=== PATIENT | female | born 1990 | race Caucasian/White ===

== ENCOUNTER → 2017-04-23 14:30 | Outpatient (POV) | payer BC, SELFPAY | PROVIDERS: Visit Provider Physician Assistant | DX: Z00.00 Encounter for general adult medical examination without abnormal findings (principal) ==

== ENCOUNTER 2017-05-17 07:16 | Emergency (ER) | payer BC, SELFPAY ==
[2017-05-17 07:24] VITALS: BP 151/88; PULSE 82; RESP 18; TEMP 36.6; O2SAT 99; BMI 42.0
--- NOTE | 2017-05-17 07:32 | CT_ITS ---
CT abdomen pelvis wo con CLINICAL INDICATION: Right upper quadrant pain ITS.REASON: ruq pain ORDERING PHYSICIAN: Niko Price MD PATIENT AGE: 26 years COMPARISON: None TECHNIQUE: Axial images obtained with sagittal and coronal reformats. PROCEDURE: Oral Contrast: None IV Contrast: None . FINDINGS: No acute finding in the lung bases. No focal liver lesion. Gallstones are present stone noted in the region of the neck of the gallbladder. No obvious biliary dilatation. Spleen is enlarged at 16 cm. The adrenal glands and pancreas are unremarkable. No obstructing renal or ureteral calculi. No renal mass. There are small lymph nodes in the retroperitoneum. Unremarkable appendix. No intestinal obstruction or free air. No evidence of diverticulitis. No pelvic mass or focal inflammatory change there is a left ovarian cyst 3.7 cm. No acute bony anomalies. IMPRESSION: Cholelithiasis. A 16 mm stone is present near the neck of the gallbladder. Splenomegaly Possible left ovarian cyst
[2017-05-17 08:11] LABS: Urine Pregnancy, HCG Qual. Negative (Negative)
[2017-05-17 08:26] LABS: Basophils # 0.1 K/mm3 (0-0.2); Basophils % 0.6 % (0.1-2.0); Eosinophils # 0.2 K/mm3 (0.0-0.4); Eosinophils % 1.8 % (0.1-12.0); Hematocrit 40.4 % (37.0-47.0); Hemoglobin 13.3 g/dL (12.2-16.2); Lymphocytes # 2.1 K/mm3 (0.7-4.5); Lymphocytes % 25.8 K/mm3 (10-50); Mean Corpuscular HGB Conc 32.9 g/dL (31.8-35.4); Mean Corpuscular Hemoglobin 29.7 pg (27.0-31.2); Mean Corpuscular Volume 90.3 fl (81-99); Mean Platelet Volume 7.4 fl (7.4-10.4); Monocytes # 0.4 K/mm3 (0.1-1.0); Monocytes % 4.9 % (1.7-9.3); Neutrophils # 5.5 K/mm3 (1.8-7.8); Neutrophils % 66.9 % (37.0-80.0); Platelet Count 211 K/mm3 (142-424); Red Blood Count 4.48 M/mm3 (4.20-5.40); Red Cell Distribution Width 12.2 % (11.5-17.5); White Blood Count 8.2 K/mm3 (4.8-10.8)
--- NOTE | 2017-05-17 08:35 | HMH.EDABDPAI ---
ED Disposition Clinical Impression: RUQ abdominal pain Cholelithiasis Qualifiers: Cholelithiasis location: gallbladder Cholecystitis presence: without cholecystitis Biliary obstruction: without biliary obstruction Qualified Code(s): K80.20 - Calculus of gallbladder without cholecystitis without obstruction Disposition: Home, Self-Care Condition on Discharge: Good Instructions: DI for Acute Abdomen Additional Instructions: Please avoid any fatty/greasy meals, eat a bland diet, follow-up with the general surgeon (dr Petit) within the next 3-5 days. Referrals: Torito Addison MD [Primary Care Provider] - Tanner Petit MD [Staff Physician] - Time of Disposition: 09:38 - Critical Care Critical Care Time: No Attestation: On 05/17/17, the high probability of a clinically significant, sudden or life threatening deterioration of the following system(s) required my full and direct attention, intervention and personal management. The time I documented below is in addition to time spent performing reported procedures but includes the following listed in this critical care notation. Medical Decision Making - Medical Records Medical records reviewed: Yes: I reviewed the patient's medical records. Vital Signs: 05/17/17 07:24 05/17/17 10:51 Temperature 97.8 F 98.2 F Temperature Source Oral Oral Pulse Rate 67 Pulse Rate [Right Brachial] 82 Respiratory Rate 18 16 Blood Pressure 138/74 Blood Pressure [Right Arm] 151/88 Blood Pressure Mean [Right Arm] 109 Blood Pressure Source Automatic Cuff Blood Pressure Source [Right Arm] Automatic Cuff Blood Pressure Position Sitting Blood Pressure Position [Right Arm] Sitting 02 Sat by Pulse Oximetry 99 Oxygen Delivery Method Room Air Room Air - Lab Data Lab results reviewed: Yes: I reviewed the patient's lab results. Lab Results 05/17/17 07:50: WBC 8.2, RBC 4.48, Hgb 13.3, Hct 40.4, MCV 90.3, MCH 29.7, MCHC 32.9, RDW 12.2, Plt Count 211, MPV 7.4, Neut % (Auto) 66.9, Lymph % (Auto) 25.8, Smyth % (Auto) 4.9, Eos % (Auto) 1.8, Baso % (Auto) 0.6, Neut # (Auto) 5.5, Lymph # (Auto) 2.1, Smyth # (Auto) 0.4, Eos # (Auto) 0.2, Baso # (Auto) 0.1 05/17/17 07:50: Sodium 142, Potassium 4.4, Chloride 106, Carbon Dioxide 29, Anion Gap 11.4, BUN 12, Creatinine 0.72, Estimated Creat Clear 124, Estimated GFR 98, Est GFR ( Amer) 118, Glucose 111 H, Calcium 8.7, Total Bilirubin 0.2, AST 15, ALT 29, Alkaline Phosphatase 55, Total Protein 6.8, Albumin 3.6, Globulin 3.2, Albumin/Globulin Ratio 1.1, Amylase 31, Lipase 121 05/17/17 08:00: Urine HCG, Qual Negative 05/17/17 08:00: Urine Color Yellow, Urine Appearance Clear, Urine pH 6.0, Ur Specific [place] 1.020, Urine Protein Negative, Urine Glucose (UA) Negative, Urine Ketones Negative, Urine Blood Negative, Urine Nitrate Negative, Urine Bilirubin Negative, Urine Urobilinogen 0.2, Ur Leukocyte Esterase Negative, Urine WBC 3-5, Ur Squamous Epith Cells 10-20, Urine Bacteria 1+, Urine Mucus Trace Result diagrams: 05/17/17 07:50 05/17/17 07:50 Orders (Tests/Meds): ED MEDICATIONS Discontinued Medications Generic Name Dose Route Start Last Admin Trade Name Freq PRN Reason Stop Dose Admin Sodium Chloride 1,000 mls @ 999 mls/hr 05/17/17 08:30 05/17/17 08:37 Sod Chlor 0.9% 1000ml Bag IV 05/17/17 09:30 Not Given .Q1H1M FLOR Lactated Ringer's 1,000 mls @ 999 mls/hr 05/17/17 08:45 05/17/17 08:39 Lactated Ringer's 1000 Ml Bag IV 05/17/17 09:45 999 mls/hr .Q1H1M FLOR Administration Ketorolac Tromethamine 30 mg 05/17/17 08:26 05/17/17 08:35 Toradol 30mg/Ml Vial IV 05/17/17 08:27 30 mg ONCE ONE Administration Ondansetron HCl 4 mg 05/17/17 08:26 05/17/17 08:35 Zofran 4mg/2ml Vial IV 05/17/17 08:27 4 mg ONCE ONE Administration - CT Data CT Scan: Abdomen, Pelvis Time Received: 09:[address] Reviewed: Yes: I have reviewed the patient's CT results, I have viewed the radiologist's interpretatio
[2017-05-17 08:44] LABS: Alanine Aminotransferase 29 U/L (12-78); Albumin Level 3.6 gm/dL (3.4-5.0); Albumin/Globulin Ratio 1.1 (1.1-1.8); Alkaline Phosphatase 55 U/L (46-116); Amylase 31 U/L (25-125); Anion Gap 11.4 mEq/L (5-15); Aspartate Amino Transferase 15 U/L (15-37); Bilirubin,Total 0.2 mg/dL (0.2-1.0); Blood Urea Nitrogen 12 mg/dL (7-18); Calcium 8.7 mg/dL (8.5-10.1); Carbon Dioxide 29 mmol/L (21.0-32.0); Chloride 106 mmol/L (98-107); Creatinine Clearance Estimated 124 mL/min (0-300); Creatinine,Serum 0.72 mg/dL (0.55-1.02); Estimated Glomerular Filt Rate 98 ml/min (>60); GFR (African American) 118 ML/MIN (>60); Globulin 3.2 gm/dl (1.3-3.2); Glucose 111 mg/dL (74-106); Lipase 121 u/L (73-393); Potassium 4.4 mmoL/L (3.5-5.1); Sodium 142 mmol/L (136-145); Total Protein,Serum 6.8 gm/dL (6.4-8.2)
--- NOTE | 2017-05-17 08:44 | ED_ITS ---
ED Disposition Clinical Impression: RUQ abdominal pain Cholelithiasis Qualifiers: Cholelithiasis location: gallbladder Cholecystitis presence: without cholecystitis Biliary obstruction: without biliary obstruction Qualified Code(s) : K80.20 - Calculus of gallbladder without cholecystitis without obstruction Disposition: Home, Self-Care Condition on Discharge: Good Instructions: DI for Acute Abdomen Additional Instructions: Please avoid any fatty/greasy meals, eat a bland diet, follow-up with the general surgeon (dr Petit) within the next 3-5 days. Referrals: Torito Addison MD [Primary Care Provider] - Tanner Petit MD [Staff Physician] - Time of Disposition: 09:38 - Critical Care Critical Care Time: No Attestation: On 05/17/17, the high probability of a clinically significant, sudden or life threatening deterioration of the following system(s) required my full and direct attention, intervention and personal management. The time I documented below is in addition to time spent performing reported procedures but includes the following listed in this critical care notation. Medical Decision Making - Medical Records Medical records reviewed: Yes: I reviewed the patient's medical records. Vital Signs: 05/17/17 07:24 05/17/17 10:51 Temperature 97.8 F 98.2 F Temperature Source Oral Oral Pulse Rate 67 Pulse Rate [Right Brachial] 82 Respiratory Rate 18 16 Blood Pressure 138/74 Blood Pressure [Right Arm] 151/88 Blood Pressure Mean [Right Arm] 109 Blood Pressure Source Automatic Cuff Blood Pressure Source [Right Arm] Automatic Cuff Blood Pressure Position Sitting Blood Pressure Position [Right Arm] Sitting 02 Sat by Pulse Oximetry 99 Oxygen Delivery Method Room Air Room Air - Lab Data Lab results reviewed: Yes: I reviewed the patient's lab results. Lab Results 05/17/17 07:50: WBC 8.2, RBC 4.48, Hgb 13.3, Hct 40.4, MCV 90.3, MCH 29.7, MCHC 32.9, RDW 12.2, Plt Count 211, MPV 7.4, Neut % (Auto) 66.9, Lymph % (Auto) 25.8 , Ransom % (Auto) 4.9, Eos % (Auto) 1.8, Baso % (Auto) 0.6, Neut # (Auto) 5.5, Lymph # (Auto) 2.1, Ransom # (Auto) 0.4, Eos # (Auto) 0.2, Baso # (Auto) 0.1 05/17/17 07:50: Sodium 142, Potassium 4.4, Chloride 106, Carbon Dioxide 29, Anion Gap 11.4, BUN 12, Creatinine 0.72, Estimated Creat Clear 124, Estimated GFR 98, Est GFR ( Amer) 118, Glucose 111 H, Calcium 8.7, Total Bilirubin 0.2, AST 15, ALT 29, Alkaline Phosphatase 55, Total Protein 6.8, Albumin 3.6, Globulin 3.2, Albumin/Globulin Ratio 1.1, Amylase 31, Lipase 121 05/17/17 08:00: Urine HCG, Qual Negative 05/17/17 08:00: Urine Color Yellow, Urine Appearance Clear, Urine pH 6.0, Ur Specific [place] 1.020, Urine Protein Negative, Urine Glucose (UA) Negative, Urine Ketones Negative, Urine Blood Negative, Urine Nitrate Negative, Urine Bilirubin Negative, Urine Urobilinogen 0.2, Ur Leukocyte Esterase Negative, Urine WBC 3-5, Ur Squamous Epith Cells 10-20, Urine Bacteria 1+, Urine Mucus Trace Result diagrams: 05/17/17 07:50 05/17/17 07:50 Orders (Tests/Meds): ED MEDICATIONS Discontinued Medications Generic Name Dose Route Start Last Admin Trade Name Freq PRN Reason Stop Dose Admin Sodium Chloride 1,000 mls @ 999 mls/hr 05/17/17 08:30 05/17/17 08:37 Sod Chlor 0.9% 1000ml Bag IV 05/17/17 09:30 Not Given .Q1H1M FLOR Lactated Ringer's 1,000 mls @ 999 mls/hr 05/17/17 08
--- NOTE | 2017-05-17 08:52 | US_ITS ---
US gallbladder HISTORY: ITS.REASON: RUQ abdominal pain ORDERING PHYSICIAN: Niko Price MD PATIENT AGE: 26 years COMPARISON: None FINDINGS: PANCREAS: Unremarkable. No obvious mass or abnormal fluid collection. No ductal dilatation LIVER: No focal liver lesions demonstrated. Homogeneous echogenicity. No intrahepatic biliary ductal dilatation evident RIGHT KIDNEY: Unremarkable. Normal size and echogenicity. No hydronephrosis GALLBLADDER: Gallbladder is mildly distended. There are 2 stones in the gallbladder the largest measuring approximately 2 cm. One stone is near the neck of the gallbladder. No gallbladder wall thickening or pericholecystic fluid evident. The common bile duct is normal at 3 mm. IMPRESSION: Cholelithiasis with mildly distended gallbladder. One stone is near the neck of the gallbladder. No biliary dilatation or gallbladder wall thickening
[2017-05-17 08:55] LABS: Microscopic, Urine URINE MICROSCOPIC (MICROSCOPIC)
[2017-05-17 08:57] LABS: Appearance,Urine CLEAR (Clear); Bilirubin,Urine Negative (Negative); Blood, Urine Negative (Negative); Color,Urine YELLOW (Yellow); Glucose,Urine (UA) Negative (Negative); Ketones,Urine Negative (Negative); Leukocyte Esterase,Urine Negative (Negative); Nitrate,Urine Negative (Negative); Protein,Urine Negative (Negative); Urobilinogen,Urine 0.2 EU/dl (0.2)
[2017-05-17 09:06] LABS: Bacteria,Urine 1+ /lpf; Mucus,Urine Trace /lpf
[2017-05-17 10:51] VITALS: BP 138/74; PULSE 67; RESP 16; TEMP 36.8; O2SAT 98
== END 2017-05-17 10:53 | disposition home or self-care (01) ==
PROVIDERS: Emergency Medicine; Emergency Provider Emergency Medicine; PCP Internal Medicine Adolescent Medicine
DX: K80.20 Calculus of gallbladder without cholecystitis without obstruction (principal)
CPT/HCPCS: 74176; 76705; 80053; 81001; 81025; 82150; 83690; 85025; 93005; 93041; 96365; 96366; 96375; 99283; J2405

== ENCOUNTER 2017-06-08 08:52 | Day surgery (SDC) | payer BC, SELFPAY ==
[2017-06-06 13:06] VITALS: BMI 40.8
[2017-06-08] VITALS (9 sets, daily range): BP systolic 114–156; BP diastolic 52–74; PULSE 66–87; RESP 16–18; TEMP 36–36.5; O2SAT 95–97
[2017-06-08 09:19] LABS: Urine Pregnancy, HCG Qual. Negative (Negative)
--- NOTE | 2017-06-08 09:45 | HMH.ANESCL ---
[facility] Anesthesia Checklist - Patient Identification Patient Identification: Arm Band - Structural Data Admitted From: Home Planned Operative Procedure/s: lap david Consent for Planned Operative Procedure(s) Verified: Yes Verified Documents: Surgical Consent, History and Physical - NPO Status Verified Time NPO: 00:00 - Additional verifications Anesthesia Reactions: No - Airway Assessment C-Spine Mobility Assessed: Yes (mp2) TMJ Mobility Assessed: Yes Dentition: Good Dentition - Neurological Assessment Level of Consciousness: Awake, Alert - Anesthesia Plan Anesthesia Risk discussed: Yes Anesthesia Plan: Verified ASA Class: II Anesthesia Type: General [facility] Anesthesia HX I have reviewed the patient's past medical history: Yes Medical History: Denies:: Cancer, Diabetes Mellitus Type 1, Diabetes Mellitus Type 2, MRSA, Seizures Other Medical History: Reports: Sinus Problems. Denies: Blood Transfusion Reaction Laterality Cases: Bilateral: Tonsillectomy Amputation: No Fractures: No *Family Hx:: Hypertension, Diabetes
--- NOTE | 2017-06-08 11:14 | HMH.OPNOTE ---
Date of procedure: 06/08/17 Pre-op Diagnosis:: Chronic calculus cholecystitis Post-op Diagnosis:: Same Procedure performed:: Laparoscopic cholecystectomy Surgeon:: Tanner Petit MD [employer]:: Irma Flores [employer]:: Grant Chan Anesthesia: GETA Estimated blood loss (mL): 10 Operative findings:: Severe pericholecystic fat stranding and wall thickening Operative note:: After informed consent was obtained, the patient was taken to the operating room and placed in the supine position. General anesthesia was induced and the abdomen was prepped and draped in a sterile fashion. After infiltration with local anesthetic an infraumbilical incision was made. A Veress needle was placed in position. The abdomen was insufflated. A 5 mm optical trocar was placed in position. Under direct visualization, a 12 mm trocar was placed in the subxiphoid position and 2 additional 5 mm trocars were placed in the right upper quadrant. The gallbladder was elevated up and over the liver margin. The tissue around the cystic duct was carefully dissected. 3 clips were placed proximally and the duct was transected with harmonic aby. Harmonic aby were then utilized to dissect the gallbladder away from the liver margin with careful attention to the control of the cystic artery. The gallbladder was placed in a retrieval bag and removed through the subxiphoid trocar site. The right upper quadrant was thoroughly irrigated. No active bleeding or bile leak was noted. Fascia at the subxiphoid trocar site was reapproximated utilizing the NeoClose device. The remaining trocars were removed. All wounds were irrigated and skin was closed with 4-0 Monocryl in a subcuticular fashion. Steri-Strips were applied. The patient's anesthetic agents were reversed and extubation was completed prior to transfer to recovery in stable condition. Condition: stable Disposition: PACU Specimens:: Gallbladder and contents Complications:: No immediate
--- NOTE | 2017-06-08 11:31 | P.PN_ITS ---
[facility] Anesthesia Record Part II Discharge Time: 12:00 Destination: [facility] PACU nurse assessment reviewed?: Yes Patient Condition:: Good Anesthesia Complications:: None
--- NOTE | 2017-06-08 11:31 | P.PN_ITS ---
[facility] Anesthesia Record Part I Intake, IV Amount: 1,500 Estimated blood loss (mL): 15 Urine output (mL): 0 Blood Pressure: 123/63 SaO2: 95 Pulse Rate: 87 Respiratory Rate: 16 Temperature: 97.7 F Patient is:: Drowsy, Stable Stable to PACU at:: 11:30
--- NOTE | 2017-06-08 11:31 | HMH.ANESII ---
[facility] Anesthesia Record Part II Discharge Time: 12:00 Destination: [facility] PACU nurse assessment reviewed?: Yes Patient Condition:: Good Anesthesia Complications:: None
== END 2017-06-08 12:34 | disposition home or self-care (01) ==
PROVIDERS: PCP Internal Medicine Adolescent Medicine; Visit Provider Surgery
PROC: 0FT44ZZ Resection of Gallbladder, Percutaneous Endoscopic Approach (ICD-10-PCS; CPT 47562; principal; 2017-06-08 10:25)
DX: K80.10 Calculus of gallbladder with chronic cholecystitis without obstruction (principal)
CPT/HCPCS: 47562; 81025; 96374; J0131; J2405; J2710

== ENCOUNTER → 2018-07-09 12:52 | Outpatient (CLI) | payer BC, SELFPAY ==
[2018-07-09 13:34] LABS: Basophils % 0.5 % (0.1-2.0); Eosinophils # 0.1 K/mm3 (0.0-0.4); Eosinophils % 1.7 % (0.1-12.0); Hematocrit 39.4 % (37.0-47.0); Hemoglobin 13.4 g/dL (12.2-16.2); Lymphocytes # 2.1 K/mm3 (0.7-4.5); Lymphocytes % 34.9 % (10-50); Mean Corpuscular Volume 91.2 fl (81-99); Mean Platelet Volume 7.7 fl (7.4-10.4); Monocytes # 0.2 K/mm3 (0.1-1.0); Monocytes % 3.6 % (1.7-9.3); Neutrophils # 3.5 K/mm3 (1.8-7.8); Neutrophils % 59.3 % (37.0-80.0); Platelet Count 224 K/mm3 (142-424); Red Blood Count 4.32 M/mm3 (4.20-5.40); Red Cell Distribution Width 12.5 % (11.5-17.5); White Blood Count 5.9 K/mm3 (4.8-10.8)
[2018-07-09 14:14] LABS: Hemoglobin A1C 5.4 % (0.0-7.0)
--- NOTE | 2018-07-09 14:22 | PC.NURSE ---
1330- Received call from lab requesting to check pt's bp. Upon arrival pt appeared pale, eating crackers and drinking orange juice. BP 113/38. Lab staff state pt became pale , lightheaded aftew having blood drawn at 13:15. Call placeed to Dr Addison. 13:45- Pt's BP 108/57, FSBS acquired (110). Return call from Dr Addison requesting pt be taken to ER for further evaluation. Pt transported to ED via wheelchair accompanied per hospital staff.
[2018-07-09 16:13] LABS: Alanine Aminotransferase 29 U/L (12-78); Albumin Level 3.6 gm/dL (3.4-5.0); Albumin/Globulin Ratio 1.1 (1.1-1.8); Alkaline Phosphatase 41 U/L (46-116); Anion Gap 18.3 mEq/L (5-15); Aspartate Amino Transferase 15 U/L (15-37); Bilirubin,Total 0.3 mg/dL (0.2-1.0); Blood Urea Nitrogen 13 mg/dL (7-18); Calcium 8.7 mg/dL (8.5-10.1); Carbon Dioxide 22 mmol/L (21.0-32.0); Chloride 106 mmol/L (98-107); Chol/HDL Ratio 4.6 (1-3.5); Cholesterol 179 mg/dL (140-200); Estimated Glomerular Filt Rate 86 ml/min (>60); Ferritin 27 ng/mL (8-388); GFR (African American) 104 ML/MIN (>60); Globulin 3.3 gm/dl (1.3-3.2); Glucose 87 mg/dL (74-106); HDL Cholesterol 39 mg/dL (29-89); LDL Cholesterol 112 mg/dL (0-130); Potassium 4.3 mmoL/L (3.5-5.1); Sodium 142 mmol/L (136-145); Thyroid Stimulating Hormone 1.78 uIU/ml (0.358-3.740); Total Protein,Serum 6.9 gm/dL (6.4-8.2); Triglycerides 140 mg/dL (30-200); VLDL Cholesterol 28 mg/dL (0-40)
[2018-07-11 15:04] LABS: Vitamin D 25 Hydroxy 30.8 ng/mL (30.0-100.0)
== END ==
PROVIDERS: Visit Provider Nurse Practitioner Family
DX: E66.01 Morbid (severe) obesity due to excess calories (principal); E55.9 Vitamin D deficiency, unspecified; R25.2 Cramp and spasm; F32.1 Major depressive disorder, single episode, moderate
CPT/HCPCS: 36415; 80053; 80061; 82652; 82728; 83036; 83735; 84443; 85025

== ENCOUNTER → 2018-08-21 14:09 | Outpatient (CLI) | payer BC, SELFPAY ==
[2018-08-21 14:13] LABS: Adenovirus F 40/41, stool Not Detected (NotDetected); Astrovirus Not Detected (NotDetected); Clostridium Difficile A/B, PCR Not Detected (NotDetected); Cryptosporidium Not Detected (NotDetected); Cyclospora Cayetanesis Not Detected (NotDetected); Entamoeba histolytica Not Detected (NotDetected); Enteroaggregative E coli Not Detected (NotDetected); Enteropathogenic E coli Not Detected (NotDetected); Enterotoxigenic E coli Not Detected (NotDetected); Giardia lamblia Not Detected (NotDetected); Norovirus Not Detected (NotDetected); Plesimonas Shigalloides, PCR Not Detected (NotDetected); Rotavirus A Not Detected (NotDetected); Salmonella, PCR Not Detected (NotDetected); Sapovirus Not Detected (NotDetected); Shiga-like toxin E coli Not Detected (NotDetected); Shigella Enterovasive E coli Not Detected (NotDetected); Vibrio Cholerae Not Detected (NotDetected); Vibrio, PCR Not Detected (NotDetected); Yersinia Entercolitica, PCR Not Detected (NotDetected)
[2018-08-21 20:27] LABS: Campylobacter Detected (NotDetected)
== END ==
LOC: LAB 14:10 → LAB.DROPOF 14:10
PROVIDERS: Visit Provider Internal Medicine Adolescent Medicine
DX: R19.7 Diarrhea, unspecified (principal); A04.5 Campylobacter enteritis
CPT/HCPCS: 87507

== ENCOUNTER 2019-08-12 18:37 | Emergency (ER) | payer BC, SELFPAY ==
[2019-08-12 18:38] VITALS: BP 142/89; PULSE 95; RESP 20; TEMP 36.8; O2SAT 100; BMI 42.8
--- NOTE | 2019-08-12 18:55 | XR_ITS ---
PROCEDURE: XR FOOT LT MIN 3V CLINICAL INDICATION: pain Heel pain, entire foot pain COMPARISON: No exams were available for comparison FINDINGS: No fracture or dislocation. No lytic or blastic change. There is normal mineralization. The joint spaces are well-preserved. No significant degenerative/arthritic changes. No erosive changes evident. Other findings:There is a small calcaneal spur. Os trigonum is present IMPRESSION: No acute findings. Dictated by: Madhav Weinstein MD 08/12/2019 19:50 Electronically signed by Madhav Weinstein MD in [place] 08/12/2019 19:50
--- NOTE | 2019-08-12 19:10 | HMH.EDUTC ---
[facility] Disposition Clinical Impression: Left foot pain, Foot tendinitis Achilles tendinitis Qualifiers: Laterality: left Qualified Code(s): M76.62 - Achilles tendinitis, left leg Disposition: Home, Self-Care Condition on Discharge: Good Instructions: DI for Achilles Tendinopathy, DI for Foot Pain Additional Instructions: Rest the extremity, Elevate the extremity as tolerated while you are resting. Continue to take your meloxicam for pain. Follow up with Dr. Fierro. I put in a referral but you need to call her office and schedule an appointment. Follow up with your regular doctor. GO TO THE ER FOR ANY WORSENING SYMPTOMS Referrals: Torito Addison MD [Primary Care Provider] - Nedra Fierro DPM [Staff Physician] - Forms: Work/School Release Time of Disposition: 19:16 Medical Decision Making - Medical Records Medical records reviewed: No: I reviewed the patient's medical records. - [place]pe Inquiry Pt receiving controlled substance: No Vital Signs: 08/12/19 18:38 08/12/19 19:21 Temperature 98.3 F 98.3 F Temperature Source Oral Oral Pulse Rate 95 H Pulse Rate [Radial] 95 H Respiratory Rate 20 20 Blood Pressure 142/84 H Blood Pressure [Right Arm] 142/89 H Blood Pressure Mean [Right Arm] 106 Blood Pressure Source Automatic Cuff Blood Pressure Source [Right Arm] Automatic Cuff Blood Pressure Position Sitting Blood Pressure Position [Right Arm] Sitting 02 Sat by Pulse Oximetry 100 Oxygen Delivery Method Room Air Room Air - Radiology Data #1 Image(s): Foot/Toes Image Reviewed: Yes I reviewed the patient's radiology image, Yes I have reviewed radiologist's interpretation Preliminary Findings: No Fracture Seen PROCEDURE: XR FOOT LT MIN 3V CLINICAL INDICATION: pain Heel pain, entire foot pain COMPARISON: No exams were available for comparison FINDINGS: No fracture or dislocation. No lytic or blastic change. There is normal mineralization. The joint spaces are well-preserved. No significant degenerative/arthritic changes. No erosive changes evident. Other findings:There is a small calcaneal spur. Os trigonum is present IMPRESSION: No acute findings. Dictated by: Madhav Weinstein MD 08/12/2019 19:50 Electronically signed by Madhav Weinstein MD in [place] 08/12/2019 19:50 [facility] HPI - General Stated complaint: Pain Left Foot Time Seen by Provider: 08/12/19 19:14 Mode of Arrival: Ambulatory Source of Information: Patient Limitations: No Limitations Description of Symptoms (Recalled from Triage Doc. by RN): Pain in left foot for a few days HEENT Symptoms (Recalled from RN notes): No Resp Symptoms (Recalled from RN notes): No Skin Symptoms (Recalled from RN notes): No MS Symptoms (Recalled from RN notes): Yes Functional Status (Recalled from RN notes): wnl - History of Present Illness Provider Complaint: She c/o left foot pain that began around 1 week ago. She denies any known injury. 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 After she has worked her foot hurts worse. She denies any swelling or history of gout or other joint pain. - Related Data Home Medications Medication Instructions Recorded Confirmed Cetirizine HCl [Zyrtec] 10 mg PO DAILY 06/06/17 06/23/19 Vit D3/Folic Acid/B2/B6/B12 1 each PO DAILY 06/06/17 06/23/19 [Folgard Tablet] buPROPion HCL [Wellbutrin Xl] 150 mg PO DAILY 01/22/19 06/23/19 Allergies Allergy/AdvReac Type Severity Reaction Status Date / Time No Known Allergies Allergy Verified 06/26/17 10:39 - Worker's Comp Is this a Worker's Comp case?: No [facility] History - Hepatitis A Screen Drug use history?: No High risk sexual behaviors?: No History of sexually transmitted infection?: No Currently employed?: No Childcare worker?: No Do you have indoor plumbing?: Yes Do you have electricity?: Yes Attestation statement:: This patient has been screened for Hepatitis A risk factors. I have reviewed the patient's past medical
[2019-08-12 19:21] VITALS: BP 142/84; PULSE 95; RESP 20; TEMP 36.8; O2SAT 100
== END 2019-08-12 19:23 | disposition home or self-care (01) ==
PROVIDERS: Emergency Provider Nurse Practitioner Family; PCP Internal Medicine Adolescent Medicine
DX: M76.62 Achilles tendinitis, left leg (principal); Z90.09 Acquired absence of other part of head and neck
CPT/HCPCS: 73630; 99201

== ENCOUNTER → 2019-10-03 13:13 | Outpatient (CLI) | payer BC, SELFPAY ==
[2019-10-03 13:26] LABS: Adenovirus F 40/41, stool Not Detected (NotDetected); Astrovirus Not Detected (NotDetected); Campylobacter Not Detected (NotDetected); Clostridium Difficile A/B, PCR Not Detected (NotDetected); Cryptosporidium Not Detected (NotDetected); Cyclospora Cayetanesis Not Detected (NotDetected); Entamoeba histolytica Not Detected (NotDetected); Enteroaggregative E coli Not Detected (NotDetected); Enterotoxigenic E coli Not Detected (NotDetected); Giardia lamblia Not Detected (NotDetected); Norovirus Not Detected (NotDetected); Plesimonas Shigalloides, PCR Not Detected (NotDetected); Rotavirus A Not Detected (NotDetected); Salmonella, PCR Not Detected (NotDetected); Sapovirus Not Detected (NotDetected); Shiga-like toxin E coli Not Detected (NotDetected); Shigella Enterovasive E coli Not Detected (NotDetected); Vibrio Cholerae Not Detected (NotDetected); Vibrio, PCR Not Detected (NotDetected); Yersinia Entercolitica, PCR Not Detected (NotDetected)
[2019-10-03 14:18] LABS: Basophils # 0.1 K/mm3 (0-0.2); Basophils % 0.6 % (0.1-2.0); Eosinophils # 0.1 K/mm3 (0.0-0.4); Hematocrit 42.3 % (37.0-47.0); Hemoglobin 14.4 g/dL (12.2-16.2); Lymphocytes # 2.4 K/mm3 (0.7-4.5); Lymphocytes % 31.4 % (10-50); Mean Corpuscular HGB Conc 34.1 g/dL (31.8-35.4); Mean Platelet Volume 7.7 fl (7.4-10.4); Monocytes # 0.2 K/mm3 (0.1-1.0); Monocytes % 2.6 % (1.7-9.3); Neutrophils % 64.4 % (37.0-80.0); Platelet Count 283 K/mm3 (142-424); Red Blood Count 4.65 M/mm3 (4.20-5.40); Red Cell Distribution Width 12.8 % (11.5-17.5); White Blood Count 7.7 K/mm3 (4.8-10.8)
[2019-10-03 14:41] LABS: Alanine Aminotransferase 18 U/L (12-78); Albumin Level 4.5 g/dl (3.5-5.0); Albumin/Globulin Ratio 1.6 (1.1-1.8); Alkaline Phosphatase 61 U/L (38-126); Anion Gap 11.7 mEq/L (5-15); Aspartate Amino Transferase 26 U/L (14-36); Bilirubin,Total 0.4 mg/dl (0.2-1.3); Blood Urea Nitrogen 14 mg/dl (7-17); Calcium 9.8 mg/dl (8.4-10.2); Carbon Dioxide 27 mmol/L (22.0-30.0); Chloride 102 mmol/L (98-107); Estimated Glomerular Filt Rate 85 ml/min (>60); GFR (African American) 103 ML/MIN (>60); Globulin 2.8 g/dL (1.3-3.2); Glucose 113 mg/dl (74-100); Lipase 140 U/L (23-300); Potassium 4.7 mmoL/L (3.5-5.1); Sodium 136 mmol/L (136-145); Total Protein,Serum 7.3 g/dl (6.3-8.2)
[2019-10-03 18:49] LABS: Enteropathogenic E coli Detected (NotDetected)
[2019-10-08 04:46] LABS: H. pylori Stool Ag, EIA Negative (Negative)
== END ==
LOC: LAB 13:14
PROVIDERS: Visit Provider Internal Medicine Adolescent Medicine
DX: R10.9 Unspecified abdominal pain (principal); R19.7 Diarrhea, unspecified; A04.0 Enteropathogenic Escherichia coli infection
CPT/HCPCS: 36415; 80053; 83690; 85025; 87338; 87507

== ENCOUNTER → 2019-10-24 15:39 | Outpatient (CLI) | payer BC, SELFPAY ==
[2019-10-24 15:41] LABS: Adenovirus F 40/41, stool Not Detected (NotDetected); Astrovirus Not Detected (NotDetected); Campylobacter Not Detected (NotDetected); Clostridium Difficile A/B, PCR Not Detected (NotDetected); Cryptosporidium Not Detected (NotDetected); Cyclospora Cayetanesis Not Detected (NotDetected); Entamoeba histolytica Not Detected (NotDetected); Enteroaggregative E coli Not Detected (NotDetected); Enteropathogenic E coli Not Detected (NotDetected); Enterotoxigenic E coli Not Detected (NotDetected); Giardia lamblia Not Detected (NotDetected); Norovirus Not Detected (NotDetected); Plesimonas Shigalloides, PCR Not Detected (NotDetected); Rotavirus A Not Detected (NotDetected); Salmonella, PCR Not Detected (NotDetected); Sapovirus Not Detected (NotDetected); Shiga-like toxin E coli Not Detected (NotDetected); Shigella Enterovasive E coli Not Detected (NotDetected); Vibrio Cholerae Not Detected (NotDetected); Vibrio, PCR Not Detected (NotDetected); Yersinia Entercolitica, PCR Not Detected (NotDetected)
== END ==
LOC: LAB.DROPOF 15:39
PROVIDERS: Visit Provider Internal Medicine Adolescent Medicine
DX: R19.7 Diarrhea, unspecified (principal)
CPT/HCPCS: 87507

== ENCOUNTER → 2020-03-08 08:08 | Outpatient (POV) | payer BC, SELFPAY | PROVIDERS: Visit Provider Nurse Practitioner Family | DX: Z00.00 Encounter for general adult medical examination without abnormal findings (principal) ==

== ENCOUNTER → 2020-05-07 09:56 | Outpatient (CLI) | payer BC, SELFPAY ==
--- NOTE | 2020-05-07 10:12 | XR_ITS ---
PROCEDURE: XR LUMBAR SPINE MIN 4V CLINICAL INDICATION: LOW BACK PAIN COMPARISON: No exams were available for comparison FINDINGS: No fracture or dislocation. No lytic or blastic change. There is normal mineralization. Mild lumbar scoliosis convex right. Mild degenerative changes of the SI joints. There is normal alignment. There is degenerative disc disease at L1-L2 with straightening of the lumbar lordosis. Other findings:None. IMPRESSION: Mild lumbar curvature with degenerative disc disease at L1-L2 and degenerative change at the SI joints Dictated by: Madhav Weinstein MD 05/07/2020 11:29 Madhav Weinstein MD in [place] 05/07/2020 11:29
== END ==
LOC: RAD 09:57
PROVIDERS: PCP Internal Medicine Adolescent Medicine; Visit Provider Internal Medicine Adolescent Medicine
DX: M54.5 Low back pain (principal)
CPT/HCPCS: 72110

== ENCOUNTER 2020-06-08 14:00 | Outpatient (RCR) | payer BC, SELFPAY ==
--- NOTE | 2020-05-17 15:06 | HMH.PTOPEV ---
PT Outpatient Evaluation Rehab PT Outpatient Evaluation Start: 05/17/20 14:06 Freq: Status: Active Protocol: Document 05/17/20 14:39 PHORNE (Rec: 05/17/20 15:06 PHORNE [id number]) Electronically Signed By Lee Faye, PT 05/17/20 14:39 Outpatient Therapy Subjective History Subjective History Pt is 29 yowf who presents with c/o pain in R side low back x 3-4 wks with insidious onset of symptoms. She reports pain is worse with sitting or driving. She reports is better with rest, heat, and prescribed muscle relaxers. She reports no significant PMH . X-ray shows minimal lumbar DDD. Chief Complaint Pain,Stiff Symptom Type Ache,Dull Symptoms Relieved By Rest/Positioning,Heat Symptoms Aggravated By Sitting Prior Functional Limitations None Current Functional Limitations Driving,Sitting Level of pain today (0-10) 4 Pain scale - at its worst (0-10) 10 Lumbopelvic Eval Palapation tenderness right buttock tenderness Yes Lumbar/Sacral Palpation Findings Tenderness Lumbar/Sacral Palpation Overall Comment R SI Accessory Movement L-spine Vertebrae Accessory Movements Central P/A Vincent that Elicit Symptoms L2 bilateral L3 bilateral L4 bilateral L5 bilateral Range of Motion Lumbar Spine Active Flexion Range of 0-60 Motion (degrees) Lumbar Spine Active Extension Range of 0-15 Motion (degrees) Left Lumbar Spine Lateral Flexion Active 0-20 Range of Motion (degrees) Right Lumbar Spine Lateral Flexion 0-20 Active Range of Motion (degrees) Manual Muscle Test Bilateral Knee Extension Strength Grade 5 Normal Knee Flexion Strength Grade 5 Normal Hip Flexion Strength Grade 5 Normal Hip Abduction Strength Grade 5 Normal Hip Adduction Strength Grade 5 Normal Ankle Dorsiflexion Strength Grade 5 Normal Gastronemius/Soleus Strength Grade 5 Normal Special Tests Hip Scouring (Quadrant) Test Negative Left,Negative Right Hip Darwin (SANDIE) Test Negative Left,Negative Right Hip Bowstring (Cram) Test Negative Left,Negative Right Sciatic Nerve Tension Test Negative Left,Positive Right Unilateral Straight Leg Raise (Lasegue) Negative Left,Negative Right Test Lumbar Long Stacy Distraction Test/Manual Negative Traction Outpatient Therapy Assessment Impairments Problems/Impairmments
== END 2020-06-08 14:05 | disposition home or self-care (01) ==
LOC: PT 14:00
PROVIDERS: PCP Internal Medicine Adolescent Medicine; Visit Provider Internal Medicine Adolescent Medicine
DX: M54.5 Low back pain (principal)
CPT/HCPCS: 97010; 97014; 97033; 97110; 97163; G0283

== ENCOUNTER → 2020-09-13 07:57 | Outpatient (POV) | payer BC, SELFPAY | PROVIDERS: Visit Provider Nurse Practitioner Family | DX: Z00.00 Encounter for general adult medical examination without abnormal findings (principal) ==

== ENCOUNTER → 2020-12-23 09:03 | Outpatient (CLI) | payer BC, SELFPAY ==
[2020-12-23 09:44] LABS: Chloride 104 mmol/L (98-107)
[2020-12-23 09:45] LABS: Potassium 4.3 mmoL/L (3.5-5.1); Sodium 140 mmol/L (136-145)
[2020-12-23 09:47] LABS: Alanine Aminotransferase 26 U/L (12-78); Albumin Level 4.2 g/dl (3.5-5.0); Albumin/Globulin Ratio 1.6 (1.1-1.8); Alkaline Phosphatase 76 U/L (38-126); Anion Gap 15.3 mEq/L (5-15); Aspartate Amino Transferase 28 U/L (14-36); Bilirubin,Total 0.2 mg/dl (0.2-1.3); Blood Urea Nitrogen 11 mg/dl (7-17); Carbon Dioxide 25 mmol/L (22.0-30.0); Cholesterol 170 mg/dl (140-200); Estimated Glomerular Filt Rate 98 ml/min (>60); GFR (African American) 119 ML/MIN (>60); Globulin 2.6 g/dL (1.3-3.2); Total Protein,Serum 6.8 g/dl (6.3-8.2); Triglycerides 157 mg/dl (30-150); VLDL Cholesterol 31 mg/dL (0-40)
[2020-12-23 09:48] LABS: Calcium 9.2 mg/dl (8.4-10.2); Glucose 99 mg/dl (74-100); HDL Cholesterol 42 mg/dl (40-60)
[2020-12-23 09:59] LABS: Direct LDL Cholesterol 104.06 mg/dL (100-129)
[2020-12-23 10:51] LABS: Hemoglobin A1C 5.6 % (4.0-6.0)
== END ==
PROVIDERS: Visit Provider Nurse Practitioner Family
DX: Z00.00 Encounter for general adult medical examination without abnormal findings (principal); R73.9 Hyperglycemia, unspecified
CPT/HCPCS: 36415; 80053; 80061; 83036

== ENCOUNTER 2021-05-01 19:11 | Emergency (ER) | payer BC, SELFPAY ==
[2021-05-01 19:12] VITALS: BP 117/77; PULSE 122; RESP 16; TEMP 37; O2SAT 99; BMI 42.8
--- NOTE | 2021-05-01 20:21 | HMH.EDUTC ---
[facility] Disposition Clinical Impression: Exposure to COVID-19 virus Disposition: Home, Self-Care Condition on Discharge: Good Instructions: DI for Viral Syndrome, DI for COVID-19 (Suspected or Confirmed ), Preventing the Spread of Coronavirus Discharge Instructions Additional Instructions: *Monitor Temp, Over the counter Motrin or Tylenol as directed/as needed Tylenol every 4 hours and Motrin every 6 hours (as long as your family doctor has told you that you can take it) for fever or pain. and straight to ER if unable to lower temp less than 101.0 after medication given *Warm salt water gargles may help to soothe the throat *Throat Lozenges *Warm fluids like tea with honey may help to soothe the throat *Sleep elevated *Humidifier/Vaporizer Follow up IMMEDIATELY for new or worsening symptoms or no Noticeable improvement over the next 48-72 hours. 911 for difficulty breathing or swallowing You were tested for today for COVID19 your test result should be back in the next 24-48 hours, you may check your results on the [facility] [employer] [facility] if you have trouble logging on you may call [employer] support for assistance You was given a handout with instructions for Self Quarantine and Self isolation for while you wait on test results and what to do if they are positive Make sure to take your Vitamins Vit. C Vit D and Zinc if you can take them Referrals: Gil Hastings MD [Primary Care Provider] - As needed Forms: Work/School Release Time of Disposition: 20:22 Medical Decision Making - Chepe Inquiry Pt receiving controlled substance: No Chepe was queried for this patient: No Vital Signs: 05/01/21 19:12 Temperature 98.6 F Temperature Source Oral Pulse Rate [Right] 122 H Respiratory Rate 16 Blood Pressure [Right Arm] 117/77 Blood Pressure Mean [Right Arm] 90 02 Sat by Pulse Oximetry 99 [facility] HPI - General Stated complaint: covid test cough,DONG, Congestion Time Seen by Provider: 05/01/21 20:21 Mode of Arrival: Ambulatory Limitations: No Limitations HEENT Symptoms (Recalled from RN notes): Yes Resp Symptoms (Recalled from RN notes): Yes Skin Symptoms (Recalled from RN notes): No MS Symptoms (Recalled from RN notes): No Functional Status (Recalled from RN notes): na - History of Present Illness Provider Complaint: Patient states that she was recently exposed to someone that was positive for COVID states that now she is having fever, chills body aches and wanted to get tested for COVID - Related Data Home Medications Medication Instructions Recorded Confirmed Vit D3/Folic Acid/B2/B6/B12 1 each PO DAILY 06/06/17 11/04/19 [Folgard Tablet] escitalopram oxalate 20 mg tablet 20 mg PO tab 08/18/19 11/04/19 famotidine 20 mg tablet PO 08/18/19 11/04/19 meloxicam 15 mg tablet PO 08/18/19 11/04/19 norethindrone 1 mg-ethinyl tab PO 08/18/19 11/04/19 estradiol 20 mcg (21)-iron 75 mg (7) tablet bupropion HCl 300 mg 24 hr tablet, 300 mg PO tab 09/09/19 11/04/19 extended release cetirizine 10 mg tablet 10 mg PO tab 09/09/19 11/04/19 Previous Rx's Medication Instructions Recorded diclofenac sodium 1 % topical gel 4 g TOPICAL QID PRN #30 g 08/18/19 Allergies Allergy/AdvReac Type Severity Reaction Status Date / Time No Known Allergies Allergy Verified 11/04/19 13:41 - Worker's Comp Is this a Worker's Comp case?: No [facility] History - Hepatitis A Screen Drug use history?: No High risk sexual behaviors?: No History of sexually transmitted infection?: No Currently employed?: No Childcare worker?: No Do you have indoor plumbing?: Yes Do you have electricity?: Yes Attestation statement:: This patient has been screened for Hepatitis A risk factors. I have reviewed the patient's past medical history: Yes Medical History: Reports:: Depression, Gastroesophageal Reflux Disease(GERD) Denies:: Cancer, Diabetes Mellitus Type 1, Diabetes Mellitus Type 2, MRSA, Seizures Other Medical History: Reports: Si
[2021-05-01 20:25] VITALS: BP 117/77; PULSE 122; RESP 16; TEMP 37
== END 2021-05-01 20:27 | disposition home or self-care (01) ==
PROVIDERS: Emergency Provider Nurse Practitioner; PCP Internal Medicine Adolescent Medicine
DX: U07.1 COVID-19 (principal); K21.9 Gastro-esophageal reflux disease without esophagitis; F33.1 Major depressive disorder, recurrent, moderate
CPT/HCPCS: 99202; C9803; G0463; U0003; U0005

== ENCOUNTER → 2021-09-15 10:41 | Outpatient (CLI) | payer BC, SELFPAY ==
--- NOTE | 2021-09-15 10:48 | XR_ITS ---
FINAL REPORT CLINICAL HISTORY: POSTERIOR RT KNEE PAIN FOR THE LAST COUPLE OF MONTHS FINDINGS: Three views of the right knee reveal no evidence of fracture or dislocation. The bony alignment is normal. The joint spaces are preserved. There is no evidence of joint effusion. No localized soft tissue abnormality is identified. IMPRESSION: No acute abnormality identified. Reviewed, Interpreted and Dictated by Darell Butcher III, MD Transcribed by Analia Laurent Authenticated and [facility]
== END ==
PROVIDERS: PCP Internal Medicine Adolescent Medicine; Visit Provider Nurse Practitioner Family
DX: M25.561 Pain in right knee (principal)
CPT/HCPCS: 73562

== ENCOUNTER 2021-10-13 08:00 | Outpatient (RCR) | payer BC, SELFPAY ==
--- NOTE | 2021-10-03 10:59 | HMH.PTOPEV ---
PT Outpatient Evaluation Rehab PT Outpatient Evaluation Start: 10/03/21 08:10 Freq: Status: Active Protocol: Document 10/03/21 08:11 MIRTA (Rec: 10/03/21 10:50 MIRTA [id number]) Electronically Signed By Marita Musa, CASSIE 10/03/21 08:11 Outpatient Therapy Subjective History Subjective History Pt is a 31 y/o female that reports insidious onset of posterior knee pain a few months ago. Pt reports she was trying to deal with pain until she was unable to stand one day then went to the doctor. Pt reports pain & popping with squatting/ kneeling, extending the knee and prolonged standing/walking >1 hour. Pt reports she had PT for the right knee at least 5 years ago due to falling up the stairs hitting the front of the knee. Pt also reports intermittent radiating pain from the knee to the ankle/hip . Pt had a knee radiograph performed at [facility] 09/15/21 with no acute findings. Pt states the doctor mentioned possibility of pettit's cyst. Pt reports she ordered a knee brace from [place] but hasn't tried to wear it yet. Pt states she was taking Meloxicam and her MD changed it to Diclofenac Sodium last visit which she is still taking and states helps somedays. Pt reports she has 1 flight of stairs to her basement where her laundry is with pain going up, improved with walking sideways. Occupation: [employer], 12 hours shifts wears steel-toed boots Chief Complaint Pain,Stiff Symptom Type Throb,Sharp,Stabbing Symptoms Relieved By Rest/Positioning,Brace/Support ,Prescription Meds Symptoms Aggravated By Standing,Bending/Stooping, Physical Activity,Lifting Prior Functional Limitations None Cu
== END 2021-10-13 08:05 | disposition home or self-care (01) ==
LOC: PT 08:00
PROVIDERS: PCP Internal Medicine Adolescent Medicine; Visit Provider Nurse Practitioner Family
DX: M25.561 Pain in right knee (principal)
CPT/HCPCS: 97010; 97014; 97033; 97110; 97140; 97163; 97530; 97535; G0283

== ENCOUNTER 2023-03-17 03:48 | Emergency (ER) | payer BC, SELFPAY ==
[2023-03-17] VITALS (7 sets, daily range): BP systolic 122–155; BP diastolic 62–94; PULSE 80–115; RESP 20–27; TEMP 36.5–36.6; O2SAT 95–98; BMI 42.8
--- NOTE | 2023-03-17 03:51 | ECG_ITS ---
APPROVED REPORT Exam: Resting ECG HR:108 bpm ECG Measurements Heart Rate 108 AXES KS 146 P 44 QRSd 86 QRS 39 QT 314 T 23 QTc 377 Conclusion SINUS TACHYCARDIA ABNORMAL RHYTHM ECG UNCONFIRMED REPORT Electronically signed by : Torito Addison MD 03/18/2023 14:18:42
--- NOTE | 2023-03-17 03:58 | XR_ITS ---
PROCEDURE INFORMATION: Exam: XR Chest Exam date and time: 03/17/2023 4:14 AM Age: 32 years old Clinical indication: Pain; Chest pressure; Additional info: Cp TECHNIQUE: Imaging protocol: Radiologic exam of the chest. Views: 1 view. COMPARISON: CR XR CHEST 2V 06/23/2019 3:23 AM FINDINGS: Lungs: Unremarkable. No consolidation. Pleural spaces: Unremarkable. No pleural effusion. No pneumothorax. Heart/Mediastinum: Unremarkable. No cardiomegaly. Bones/joints: Unremarkable. IMPRESSION: No acute findings.
--- NOTE | 2023-03-17 03:59 | HMH.EDGENADL ---
Discharge Plan Disposition Patient Disposition: Home, Self-Care Condition: Good Prescriptions Prescriptions: New cefadroxil 500 mg capsule 500 mg PO BID 7 Days Qty: 14 0RF Referrals Follow up/Referrals: Torito Addison MD [Primary Care Provider] - See instructions Clinical Impressions Clinical Impression: Viral gastroenteritis, UTI (urinary tract infection) Instructions Patient Instructions: DI for Viral Gastroenteritis -- Adult, DI for Urinary Tract Infection (UTI) Discharge ED Provider: Sinan Bond General Adult HPI General Chief complaint: Chest Pain Stated complaint: Chest pain Time Seen by Provider: 03/17/23 03:58 Mode of Arrival: Ambulatory Limitations: No Limitations Description of Symptoms (Recalled from ER Triage Doc. by RN): Patient states that she has had N/V/D since and started having Chest pain at 202903/16/2023 History of Present Illness HPI narrative: Patient has a PMHx significant for cholecystectomy, obesity, anxiety, depression who presents to the ED with complaints of chest pain. Patient notes that since , she has been having nausea, vomiting, diarrhea, noting more than a dozen episodes of both daily, all nonbloody. Patient notes that tonight, around 8:30 PM, she started having chest pain which she describes as a pain on the left side of her chest and left shoulder. Patient denies any focal abdominal pain, but just general abdominal cramping from the diarrhea. Patient denies any cardiac history Related Data Previous Rx's Medication Instructions Recorded cefadroxil 500 mg capsule 500 mg PO BID 7 days #14 caps 03/17/23 Allergies Allergy/AdvReac Type Severity Reaction Status Date / Time No Known Allergies Allergy Verified 11/04/19 13:41 [facility] Disclaimer: The information contained in this section may have been updated after the patient was seen, as this information can be updated by other users. Social History Smoking Status: Current every day smoker alcohol intake: never substance use type: denies use current occupational status: other Travel in the last 8 weeks: None household members: none housing: house current occupation: 3M current occupational exposures/hazards: No ROS Obtained: Yes All systems reviewed & no additional complaints except as documented Physical Exam General General appearance: alert and in no apparent distress Head Head exam: atraumatic, normocephalic and normal inspection Eye Eye exam: Present normal appearance, PERRL and EOMI; Absent scleral icterus or nystagmus ENT ENT exam: Present normal exam, mucous membranes moist and normal external ear exam Neck Neck exam: Present normal inspection, full ROM and trachea midline Chest Chest inspection: Present normal inspection and symmetric chest wall rise; Absent tenderness Respiratory Respiratory exam: Present normal lung sounds bilaterally; Absent respiratory distress, wheezes or accessory muscle use Cardiovascular Cardiovascular exam: Present regular rate, normal rhythm and normal heart sounds Abdominal Exam Abdominal exam: Present soft; Absent distention, tenderness, guarding, rebound, rigidity, trauma, ascites or pulsatile mass Extremities Exam Extremities exam: Present normal inspection and full ROM; Absent tenderness Back Exam Back exam: Present normal inspection and full ROM; Absent tenderness Neurological Exam Neurological exam: Present alert, oriented X3 and normal gait; Absent motor sensory deficit Psychiatric Psychiatric exam: Present normal affect and normal mood Skin Skin exam: Present warm, dry and normal color Medical Decision Making Medical Records Medical records reviewed: Yes I reviewed the patient's medical records. Chepe Inquiry Pt receiving controlled substance: No Vital Signs: 03/17/23 03:48 03/17/23 03:58 03/17/23 04:15 Temperature 97.7 F Temperature Source Oral Pulse Rate 108 H 89 Pulse Rate [Radial] 115
[2023-03-17 04:11] LABS: Chloride 104 mmol/L (98-107); Potassium 4.7 mmoL/L (3.5-5.1); Sodium 136 mmol/L (136-145)
[2023-03-17 04:13] LABS: Alanine Aminotransferase 57 U/L (12-78); Aspartate Amino Transferase 52 U/L (14-36); Blood Urea Nitrogen 12 mg/dl (7-17); Creatinine Clearance Estimated 121 mL/min (50-200); Estimated Glomerular Filt Rate 97 ml/min (>60); GFR (African American) 117 ML/MIN (>60); HCG Qualitative, Serum Negative (Negative)
[2023-03-17 04:14] LABS: Albumin Level 4.5 g/dl (3.5-5.0); Albumin/Globulin Ratio 1.3 (1.1-1.8); Alkaline Phosphatase 79 U/L (38-126); Anion Gap 13.7 mEq/L (5-15); Bilirubin,Total 0.9 mg/dl (0.2-1.3); Calcium 8.5 mg/dl (8.4-10.2); Carbon Dioxide 23 mmol/L (22.0-30.0); Globulin 3.4 g/dL (1.3-3.2); Glucose 120 mg/dl (74-100); Lipase 44 U/L (23-300); Total Protein,Serum 7.9 g/dl (6.3-8.2)
[2023-03-17 04:18] LABS: Basophils % 0.3 % (0.1-2.0); Eosinophils # 0.1 K/mm3 (0.0-0.4); Eosinophils % 0.8 % (0.1-12.0); Hematocrit 44.2 % (37.0-47.0); Hemoglobin 16.2 g/dL (12.2-16.2); Lymphocytes # 2.9 K/mm3 (0.7-4.5); Lymphocytes % 30.6 % (10-50); Mean Corpuscular HGB Conc 36.7 g/dL (31.8-35.4); Mean Corpuscular Hemoglobin 32.6 pg (27.0-31.2); Mean Corpuscular Volume 88.8 fl (81-99); Mean Platelet Volume 7.6 fl (7.4-10.4); Monocytes # 0.4 K/mm3 (0.1-1.0); Monocytes % 4.3 % (1.7-9.3); Platelet Count 246 K/mm3 (142-424); Red Blood Count 4.98 M/mm3 (4.20-5.40); Red Cell Distribution Width 12.8 % (11.5-17.5); White Blood Count 9.3 K/mm3 (4.8-10.8)
[2023-03-17 04:27] LABS: Troponin I < 0.01 ng/ml (0.00-0.034)
[2023-03-17 04:29] LABS: Lactic Acid 0.8 mmol/L (0.7-2.1)
[2023-03-17 04:50] LABS: Microscopic, Urine URINE MICROSCOPIC (MICROSCOPIC)
[2023-03-17 04:51] LABS: Appearance,Urine CLEAR (Clear); Blood, Urine 3+ (Negative); Color,Urine YELLOW (Yellow); Glucose,Urine (UA) TRACE (Negative); Ketones,Urine 2+ (Negative); Leukocyte Esterase,Urine TRACE (Negative); Nitrate,Urine POSITIVE (Negative); PH,Urine 5.5 (5.0-8.5); Protein,Urine 1+ (Negative); Specific Gravity, Urine >= 1.030 (1.005-1.030)
[2023-03-17 04:56] LABS: Bilirubin,Urine 2+ (Negative)
[2023-03-17 05:02] LABS: Bacteria,Urine 1+ /lpf
[2023-03-17 05:03] LABS: Mucus,Urine Trace /lpf
== END 2023-03-17 05:44 | disposition home or self-care (01) ==
PROVIDERS: Emergency Provider Emergency Medicine; PCP Internal Medicine Adolescent Medicine
DX: R07.89 Other chest pain (principal); A08.4 Viral intestinal infection, unspecified; N39.0 Urinary tract infection, site not specified; R00.0 Tachycardia, unspecified; R11.2 Nausea with vomiting, unspecified; R19.7 Diarrhea, unspecified; F17.210 Nicotine dependence, cigarettes, uncomplicated; E66.9 Obesity, unspecified
CPT/HCPCS: 71045; 80053; 81001; 83605; 83690; 84484; 84703; 85025; 93005; 96361; 96374; 96375; 99284; J2405

== ENCOUNTER → 2023-03-20 16:59 | Outpatient (CLI) | payer BC, SELFPAY ==
[2023-03-20 17:03] LABS: Adenovirus F 40/41, stool Not Detected (NotDetected); Astrovirus Not Detected (NotDetected); Campylobacter Not Detected (NotDetected); Clostridium Difficile A/B, PCR Not Detected (NotDetected); Cryptosporidium Not Detected (NotDetected); Cyclospora Cayetanesis Not Detected (NotDetected); Entamoeba histolytica Not Detected (NotDetected); Enteroaggregative E coli Not Detected (NotDetected); Enteropathogenic E coli Not Detected (NotDetected); Enterotoxigenic E coli Not Detected (NotDetected); Giardia lamblia Not Detected (NotDetected); Norovirus Not Detected (NotDetected); Plesimonas Shigalloides, PCR Not Detected (NotDetected); Rotavirus A Not Detected (NotDetected); Salmonella, PCR Not Detected (NotDetected); Sapovirus Not Detected (NotDetected); Shiga-like toxin E coli Not Detected (NotDetected); Shigella Enterovasive E coli Not Detected (NotDetected); Vibrio Cholerae Not Detected (NotDetected); Vibrio, PCR Not Detected (NotDetected); Yersinia Entercolitica, PCR Not Detected (NotDetected)
== END ==
LOC: LAB.DROPOF 16:59
PROVIDERS: PCP Internal Medicine Adolescent Medicine; Visit Provider Physician Assistant
DX: K52.9 Noninfective gastroenteritis and colitis, unspecified (principal)
CPT/HCPCS: 87507

== ENCOUNTER 2024-08-17 19:58 | Emergency (ER) | payer BC, SELFPAY ==
[2024-08-17 20:05] VITALS: BP 165/101; PULSE 105; RESP 20; TEMP 37; O2SAT 100; BMI 39.4
--- NOTE | 2024-08-17 20:19 | HMH.EDGENADL ---
Discharge Plan Disposition Patient Disposition: Home, Self-Care Chief Complaint: Headache Prescriptions Prescriptions: No Action cefadroxil 500 mg capsule 500 mg PO BID 7 Days Qty: 14 0RF Referrals Follow up/Referrals: Torito Addison MD [Primary Care Provider] - See instructions Activity Restrictions/Add. Instructions Additional Instructions/Restrictions: Call your family doctor to establish care for this visit to the emergency department and schedule follow-up within 48 hours to ensure improvement. If you have any worsening of your condition or any other concerning signs or symptoms, return to the emergency department or your primary care doctor for further evaluation. Take Tylenol 1000 mg every 6 hours (4 times daily) and ibuprofen 400 mg every 6 hours (4 times daily) as needed with food and water to prevent GI upset and kidney damage. Clinical Impressions Clinical Impression: Migraine Print Language Print Language: [place] Discharge ED Provider: Harshil Soni General Adult HPI General Chief complaint: Headache Stated complaint: Migraine X4 days Time Seen by Provider: 08/17/24 20:01 Mode of Arrival: Ambulatory Source of Information: Patient Description of Symptoms (Recalled from ER Triage Doc. by RN): patient c/o migraine x4 days. denies history of mirgraines or hypertension. History of Present Illness HPI narrative: Please note that above description of symptoms, in this electronic medical record under categorization of recalled from ER triage doctor by RN are reflective of an initial nursing assessment, however, is not reflective of my full history and physical exam that was personally taken and clarified. Consequentially, this preceding description of symptoms, which may include the patient's categorized chief complaint in the EMR, do not reflect my personal clinical impression, and the ultimate description of history of present illness and patient stated complaints should be deferred to this section of the note. Unless stated otherwise or congruent with this section of the note, additional signs, symptoms, or incongruence should be interpreted as inaccurate with my clinical impression. Related Data Previous Rx's ?Medication ?Instructions ?Recorded cefadroxil 500 mg capsule 500 mg PO BID 7 days #14 caps 03/17/23 Allergies Allergy/AdvReac Type Severity Reaction Status Date / Time No Known Allergies Allergy Verified 11/04/19 13:41 [facility] Disclaimer: The information contained in this section may have been updated after the patient was seen, as this information can be updated by other users. Social History Smoking Status: Current every day smoker alcohol intake: never substance use type: denies use current occupational status: other Travel in the last 8 weeks?: None household members: none housing: house current occupation: 3M current occupational exposures/hazards: No Have you lived/traveled outside [place] in past 30 days?: No Contact w/someone who lives/traveled outside US past 30 days?: No Exposure to someone with infectious disease in past 14 days?: No Do you have a fever (greater than 100.4 F or 38 C)?: No Have you tested positive for COVID-19?: No Exposed to someone with COVID-19 in past 14 days?: No Do you have a sore throat?: No Do you have a cough?: No Do you have any weakness?: No Do you have any diarrhea?: No Are you experiencing any unusual bleeding?: No Do you have any muscle aches/pain?: No Do you have any abdominal pain?: No Are you experiencing loss of taste or smell?: No Other Medical History Have you received the Flu Vaccine for this season: Yes Have you received the Pneumonia Vaccine: No ROS Obtained: Yes All systems reviewed & no additional complaints except as documented Physical Exam General General appearance: alert, in no apparent distress and obese Head Head exam: atraumatic and normocephalic Eye Eye exam: Present normal appearance, PERRL and EOMI Neck Neck exam: Present normal inspection, full ROM and trachea midline Respiratory Respiratory exam: Absent respiratory distress, wheezes, stridor, accessory muscle use or prolonged expiratory phase Cardiovascular Cardiovascular exam: Present regular rate, normal rhythm and other (Pulses equal symmetric in upper and lower extremities) Abdominal Exam Abdominal exam: Present soft; Absent distention, tenderness or pulsatile mass Extremities Exam Extremities exam: Absent edema Neurological Exam Neurological exam: Present alert, oriented X3 and CN II-XII intact; Absent motor sensory deficit Skin Skin exam: Present warm and dry; Absent diaphoresis or erythema Medical Decision Making Medical Records Medical records reviewed: Yes I reviewed the patient's medical records. Screening: Per USPSTF and CDC recommendations, given the prevalence of disease in our region, it is our hospital?s policy to screen for HIV and viral Hepatitis for all patients aged 18 and over and those with ongoing risk factors. Chepe Inquiry Pt receiving controlled substance: No Chepe was queried for this patient: No Vital Signs: 08/17/24 20:05 08/17/24 20:30 Temperature 98.6 F Temperature Source Oral Pulse Rate 86 Pulse Rate [Left] 105 H Respiratory Rate 20 Blood Pressure 164/89 H Blood Pressure [Right Arm] 165/101 H Blood Pressure Mean [Right Arm] 122 Blood Pressure Source [Right Arm] Automatic Cuff Blood Pressure Position [Right Arm] Sitting 02 Sat by Pulse Oximetry 100 95 Oxygen Delivery Method Room Air Lab Data Lab Results 08/17/24 20:07: WBC 12.8 H, RBC 4.90, Hgb 15.5, Hct 44.7, MCV 91.2, MCH 31.6 H, MCHC 34.7, RDW 12.2, Plt Count 240, MPV 10.1, Neut % (Auto) 68.3, Lymph % (Auto) 23.8, [place] % (Auto) 4.4, Eos % (Auto) 2.7, Baso % (Auto) 0.6, Neut # (Auto) 8.7 H, Lymph # (Auto) 3.0, [place] # (Auto) 0.6, Eos # (Auto) 0.3, Baso # (Auto) 0.1, Sodium 137, Potassium 4.0, Chloride 111 H, Carbon Dioxide 23, Anion Gap 7.0, BUN 7, Creatinine 0.70, Estimated Creat Clear 223, Estimated GFR 96, Est GFR ( Amer) 116, Glucose 97, Calcium 8.7, Total Bilirubin 0.5, AST 20, ALT 20, Alkaline Phosphatase 67, Total Protein 6.8, Albumin 4.1, Globulin 2.7, Albumin/Globulin Ratio 1.5, HCG, Quant < 2 08/17/24 20:07 08/17/24 20:07 Orders (Tests/Meds): ED MEDICATIONS Generic Name Dose Route Start Last Admin Trade Name Freq PRN Reason Stop Dose Admin Lactated Ringer's 1,000 mls @ 999 mls/hr 08/17/24 20:17 08/17/24 20:25 Lactated Ringer's 1000 Ml Bag IV 08/17/24 21:17 999 mls/hr .Q1H1M ONE Administration Discontinued Medications Generic Name Dose Route Start Last Admin Trade Name Freq PRN Reason Stop Dose Admin Acetaminophen 1,000 mg 08/17/24 20:17 08/17/24 20:23 Acetaminophen 500mg Tab PO 08/17/24 20:18 1,000 mg ONCE ONE Administration Dexamethasone Sodium Phosphate 10 mg 08/17/24 20:17 08/17/24 20:24 Dexamethasone 4mg/Ml 1ml Vial IV 08/17/24 20:18 10 mg ONCE ONE Administration Diphenhydramine HCl 25 mg 08/17/24 20:17 08/17/24 20:24 Diphenhydramine 50mg/Ml Vial IV 08/17/24 20:18 25 mg ONCE ONE Administration Magnesium Sulfate 2 gm in 50 mls @ 50 mls/hr 08/17/24 20:17 08/17/24 20:24 Magnesium Sulfate 2gm/50ml Premix IV 08/17/24 21:16 50 mls/hr ONCE ONE Administration Ketorolac Tromethamine 15 mg 08/17/24 20:55 08/17/24 20:59 Ketorolac 30mg/Ml Vial IV 08/17/24 20:56 15 mg ONCE ONE Administration Metoclopramide HCl 10 mg 08/17/24 20:17 08/17/24 20:24 Metoclopramide Hcl 10mg/2ml Vial IVP 08/17/24 20:18 10 mg ONCE ONE Administration ORDERS Category Date Time Status CBC w/Auto Diff [Complete Blood Count Auto Diff] Stat Lab 08/17/24 20:07 Completed CMP [Comprehensive Metabolic Panel] Stat Lab 08/17/24 20:07 Completed HCG,Quantitative Stat Lab 08/17/24 20:07 Completed Medical Decision Narrative: 34-year-old female history of chronic headaches presenting with migraine. She states that she gets headaches intermittently, she is used to them being there in the morning, getting better throughout the day and bandlike. For the past 4 days she has had a headache that she feels started with pressure in her left ear. Pressure in her left ear turned into left-sided headache, now left-sided headache is frontal and radiates around the back of her head and down toward her neck. No vision changes, nausea, vomiting, fevers, chills, neck stiffness, altered mental status, falls, thunderclap character. Current headache is nonpositional, not associated with facial swelling, patient is not on any hormonal therapies and has no history of DVT or PE. States that she may be , unsure. States that she has been taking Tylenol and that seems to take the edge off, but getting to the point where it is not working, so came in for further evaluation. History was obtained via conversation with patient. On arrival, patient hemodynamically stable, alert, oriented x4, appropriate, GCS 15, moving all extremities spontaneously, pupils equal and reactive to light. Full physical exam performed and significant for very clinically well-appearing female no acute distress. Neurologically intact including cranial nerves, cerebellar, motor and sensory exams. No facial swelling. EOMs intact and full. Appears to be photophobic, but not photophobic. Differential includes headache, migraine, sinusitis, less likely to be intracranial hemorrhage, dissection, cerebral DVT, among others. Patient placed on continuous cardiac monitoring and continuous pulse ox with initial blood pressure 165/101, heart rate 105, saturation 100% on room air. Patient was given magnesium, fluids, Reglan, Benadryl, Decadron and acetaminophen initially, prior to /hCG resulting. Patient was placed in observation beginning at 8:30 PM in order to give meds, reassess and determine need for admission versus home-going. The patient was provided meds, serial exams while awaiting results. Independent interpretation of results demonstrated mild leukocytosis 12.8, but nonactionable overall. Chemistry nonactionable, negative. On reevaluation, patient states her headache is mild, nearly gone. Because of negative , Toradol was added onto regimen. On reevaluation, patient states pain is completely gone and she feels much better at this time, I feel patient is appropriate for discharge. Total observation time 1 hour. Given patient presentation, workup, history, this most likely represents migraine. Because patient at baseline without signs or symptoms of clinical decompensation, deemed appropriate for discharge. Results were relayed to patient who voiced understanding and were agreeable to outpatient management and follow up. I discussed my clinical impression with patient and answered all questions. At this time, the evidence for any other entities in the differential is insufficient to warrant any further testing or ED observation. This was explained as well. Advisory was given that persistent or worsening symptoms require further evaluation. I confirmed the understanding of this discussion. Can Reforming Machine Operator disclaimer Much of this encounter note is an electronic corporate risk analyst spoken language to printed text. Electronic corporate risk analyst of the spoken language may permit errors. Although I have reviewed the note, some errors may still exist. Critical Care Critical Care Time Critical Care Time: No
[2024-08-17 20:22] LABS: Basophils # 0.1 K/mm3 (0-0.2); Basophils % 0.6 % (0.1-2.0); Eosinophils # 0.3 Kmm3 (0.0-0.4); Eosinophils % 2.7 % (0.1-12.0); Hematocrit 44.7 % (37.0-47.0); Hemoglobin 15.5 g/dL (12.2-16.2); Immature Granulocytes # 0.03 10^3uL; Immature Granulocytes % 0.2 %; Lymphocytes % 23.8 % (10-50); Mean Corpuscular HGB Conc 34.7 g/dL (31.8-35.4); Mean Corpuscular Hemoglobin 31.6 pg (27.0-31.2); Mean Corpuscular Volume 91.2 fl (81-99); Mean Platelet Volume 10.1 fl (7.4-10.4); Monocytes # 0.6 K/mm3 (0.1-1.0); Monocytes % 4.4 % (1.7-9.3); Neutrophils # 8.7 K/mm3 (1.8-7.8); Neutrophils % 68.3 % (37.0-80.0); Nucleated Red Blood Cells # 0 10^3/uL; Nucleated Red Blood Cells % 0 %; Platelet Count 240 K/mm3 (142-424); Red Cell Distribution Width 12.2 % (11.5-17.5); Red Cell Distribution Width-SD 40.9 fL; White Blood Count 12.8 K/mm3 (4.8-10.8)
[2024-08-17] MEDS: ACETAMINOPHEN 500MG TAB 1000 MG PO (20:23)
[2024-08-17] MEDS: METOCLOPRAMIDE HCL 10MG/2ML VIAL 10 MG IVP (20:24)
[2024-08-17] MEDS: MAGNESIUM SULFATE IN WATER 2 GM/50 ML PIGGYBACK IV (20:24)
[2024-08-17] MEDS: diphenhydrAMINE 50MG/ML VIAL 25 MG IV (20:24)
[2024-08-17] MEDS: DEXAMETHASONE 4MG/ML 1ML VIAL 10 MG IV (20:24)
[2024-08-17] MEDS: LACTATED RINGERS 1000ML 1,000 ML 999 ML IV (20:25)
[2024-08-17 20:27] LABS: Albumin Level 4.1 g/dl (3.5-5.0); Chloride 111 mmol/L (98-107); Sodium 137 mmol/L (136-145)
[2024-08-17 20:29] LABS: Blood Urea Nitrogen 7 mg/dl (7-17)
[2024-08-17 20:30] VITALS: BP 164/89; PULSE 86; O2SAT 95
[2024-08-17 20:30] LABS: Alanine Aminotransferase 20 U/L (12-78); Albumin/Globulin Ratio 1.5 (1.1-1.8); Alkaline Phosphatase 67 U/L (38-126); Aspartate Amino Transferase 20 U/L (14-36); Bilirubin,Total 0.5 mg/dl (0.2-1.3); Calcium 8.7 mg/dl (8.4-10.2); Carbon Dioxide 23 mmol/L (22.0-30.0); Creatinine Clearance Estimated 223 mL/min (50-200); Estimated Glomerular Filt Rate 96 ml/min (>60); GFR (African American) 116 ML/MIN (>60); Globulin 2.7 g/dL (1.3-3.2); Glucose 97 mg/dl (74-100); Total Protein,Serum 6.8 g/dl (6.3-8.2)
[2024-08-17 20:50] LABS: HCG,Quantitative < 2 mIU/ml (0-5.42)
[2024-08-17] MEDS: KETOROLAC 30MG/ML VIAL 15 MG IV (20:59)
--- NOTE | 2024-08-17 21:02 | PC.NURSE ---
pt ambulatory to restroom upon request with slow steady gait
[2024-08-17 21:28] VITALS: BP 145/84; PULSE 88; RESP 20; TEMP 36.7; O2SAT 97
[2024-08-17 21:31] VITALS: BP 145/84; PULSE 87; RESP 14; TEMP 36.7; O2SAT 94
== END 2024-08-17 21:32 | disposition home or self-care (01) ==
PROVIDERS: Emergency Provider Emergency Medicine; PCP Internal Medicine Adolescent Medicine
DX: G43.909 Migraine, unspecified, not intractable, without status migrainosus (principal); R03.0 Elevated blood-pressure reading, without diagnosis of hypertension; F17.210 Nicotine dependence, cigarettes, uncomplicated
CPT/HCPCS: 80053; 84702; 85025; 96365; 96375; 99284; J1100; J1200; J1885; J2765; J3475; J7120